=== PATIENT | female | born 1955 | race Caucasian/White ===

== ENCOUNTER 2020-12-30 08:14 | Outpatient (CLI) | payer MEDICARE, SELFPAY | END 2020-12-30 08:15 | LOC: ANHCOVIDVC 08:14 | PROVIDERS: Visit Provider Internal Medicine | DX: Z23 Encounter for immunization (principal) | CPT/HCPCS: 0001A; 91300 ==

== ENCOUNTER 2021-01-20 08:27 | Outpatient (CLI) | payer MEDICARE, SELFPAY | END 2021-01-20 08:28 | disposition home or self-care (01) | LOC: ANHCOVIDVC 08:27 | DX: Z23 Encounter for immunization (principal) | CPT/HCPCS: 0002A; 91300 ==